=== PATIENT | male | born 1965 | race Caucasian/White ===

== ENCOUNTER 2019-08-04 08:54 | Emergency (ER) | payer MEDICAID, OTHER ==
[~2019-08-04] VITALS: Ht 182.9 cm; Wt 70.6 kg
[2019-08-04 10:24] LABS: BASO % 0.3 % (0.0-1.0); EOS % 0.6 % (0.0-3.0); HEMATOCRIT 49.9 % (42.0-52.0); HEMOGLOBIN 16.8 g/dl (13.5-17.5); LYMPH # 1.7 10^3/uL (1.5-5.0); LYMPH % 24.2 % (24.0-44.0); MEAN CORPUSCULAR HEMOGLOBIN 31.3 pg (27.0-33.0); MEAN CORPUSCULAR HGB CONC 33.7 g/dl (32.0-36.5); MEAN CORPUSCULAR VOLUME 93.1 fl (80.0-96.0); MONO # 0.6 10^3/uL (0.0-0.8); MONO % 8.9 % (0.0-5.0); NEUTROPHILS # 4.5 10^3/uL (1.5-8.5); NEUTROPHILS % 65.7 % (36.0-66.0); PLATELET COUNT, AUTOMATED 206 10^3/uL (150-450); RED BLOOD COUNT 5.36 10^6/uL (4.30-6.10); WHITE BLOOD COUNT 6.9 10^3/uL (4.0-10.0)
[2019-08-04 10:49] LABS: BLOOD UREA NITROGEN 19 MG/DL (7-18); CALCIUM LEVEL 9.5 MG/DL (8.5-10.1); CARBON DIOXIDE LEVEL 30 MEQ/L (21-32); CHLORIDE LEVEL 103 MEQ/L (98-107); CK-MB VALUE MASS 1.2 NG/ML (<3.6); CPK CREATINE PHOSPHOKINASE 107 U/L (39-308); CREATININE FOR GFR 1.01 MG/DL (0.70-1.30); GLOMERULAR FILTRATION RATE > 60.0 (>56); GLUCOSE, FASTING 80 MG/DL (70-100); MB/CK RELATIVE INDEX 1.12 (< OR =4); POTASSIUM SERUM 4.8 MEQ/L (3.5-5.1); SODIUM LEVEL 139 MEQ/L (136-145); TROPONIN I < 0.02 NG/ML (< 0.10)
--- NOTE | 2019-08-04 11:19 | REP ---
CHEST, TWO VIEWS: There is no evidence of acute infiltrate. No pleural effusion is seen. The heart is normal in size. The mediastinal silhouette is unremarkable. The visualized osseous structures are intact. IMPRESSION: No acute pulmonary disease. Recommend chest CT to rule out occult neoplasm. Electronically Signed by Angel Kramer MD 08/05/2019 08:59 A
[2019-08-04] MEDS ORDERED: GUAI100L6 PO (11:37)
[2019-08-04 11:50] VITALS: BP 116/78
--- NOTE | 2019-08-04 20:43 | ECGEPIP ---
[facility] - ED Test Date: 2019-08-04 Pat Name: JOSSE VAZ Department: Room: - Gender: Male [employer]st: frantz : 1965 Requested By: Jayda Garcia Order Number: [id number] Reading MD: Jayda Garcia Measurements Intervals [place] Rate: 74 P: 70 MT: 159 QRS: 86 QRSD: 88 T: 79 QT: 350 QTc: 391 Interpretive Statements SINUS RHYTHM NSTTW abnormalities INFERIOR - CLINICAL CORRELATIONS Electronically Signed on 08-04-2019 20:42:50 EDT by Jayda Garcia
== END 2019-08-04 11:51 | disposition home or self-care (01) ==
LOC: M ED 08:54
DX: J06.9 Acute upper respiratory infection, unspecified (principal); R04.2 Hemoptysis; F17.210 Nicotine dependence, cigarettes, uncomplicated

== ENCOUNTER 2023-05-15 11:28 | Emergency (ER) | payer OTHER ==
[~2023-05-15] VITALS: Ht 182.9 cm; Wt 70.1 kg
[~2023-05-15 11:28] MED LIST: GUAI100L6 PO
[2023-05-15] MEDS ORDERED: AMPICILLIN SOD/SULBACTAM SOD 3 GM in D5W MINI-BAG PLUS 100 ML IV ONE (12:55)
[2023-05-15] MEDS ORDERED: KETOROLAC 30 MG/ML 1ML VIAL IV ONE (12:55)
[2023-05-15] MEDS ORDERED: dexAMETHasone 20MG/5ML VIAL IV ONE (12:55)
[2023-05-15] MEDS ORDERED: NS 1,000 ML IV ONE (12:55)
[2023-05-15] MEDS ORDERED: ISOVUE-370 76% 100ML VIAL As Ordered ONE (13:32)
[2023-05-15 13:49] LABS: BASO % 0.4 % (0.0-1.0); EOS % 0.5 % (0.0-3.0); LYMPH % 26.7 % (24.0-44.0); MEAN CORPUSCULAR HEMOGLOBIN 31.3 pg (27.0-33.0); MEAN CORPUSCULAR HGB CONC 33.5 g/dl (32.0-36.5); MEAN CORPUSCULAR VOLUME 93.5 fl (80.0-96.0); MONO # 0.6 10^3/uL (0.0-0.8); MONO % 7.8 % (2.0-8.0); NEUTROPHILS # 4.8 10^3/uL (1.5-8.5); NEUTROPHILS % 64.3 % (36.0-66.0); PLATELET COUNT, AUTOMATED 230 10^3/uL (150-450); WHITE BLOOD COUNT 7.5 10^3/uL (4.0-10.0)
[2023-05-15 14:03] LABS: ERYTHROCYTE SEDIMENTATION RATE 23 mm/hr (0-20)
[2023-05-15 14:07] LABS: C REACTIVE PROTEIN QUANTITATIV < 0.40 MG/DL (<1.0)
[2023-05-15 14:09] LABS: ALBUMIN 4.6 G/DL (3.2-5.2); ALKALINE PHOSPHATASE 70 U/L (46-116); ALT/SGPT 17 U/L (7.0-40); AST/SGOT 17 U/L (<34); BILIRUBIN,DIRECT 0.2 MG/DL (<0.4); BILIRUBIN,TOTAL 0.5 MG/DL (0.3-1.2); TOTAL PROTEIN 7.9 G/DL (5.7-8.2)
[2023-05-15] MEDS ORDERED: AMOX875T2 PO (14:46)
[2023-05-15 15:04] LABS: HEMOGLOBIN 17.4 g/dl (13.5-17.5)
[2023-05-15 15:05] LABS: RED BLOOD COUNT 5.56 10^6/uL (4.30-6.10)
[2023-05-15 15:08] VITALS: BP 153/81; TEMP 98.1; O2SAT 96
== END 2023-05-15 15:11 | disposition home or self-care (01) ==
LOC: M ED 11:28
DX: K04.7 Periapical abscess without sinus (principal); K08.89 Other specified disorders of teeth and supporting structures; K02.9 Dental caries, unspecified; F17.200 Nicotine dependence, unspecified, uncomplicated
CPT/HCPCS: 70491; 80047; 80076; 83605; 85025; 85652; 86140; 87040; 96365; 96375; 99283; J0295; J1100; J1885; Q9967

== ENCOUNTER 2024-12-03 13:00 | Emergency (ER) | payer OTHER ==
[~2024-12-03] VITALS: Ht 182.9 cm; Wt 74.6 kg
[~2024-12-03 13:00] MED LIST changes: +AMOX875T2 PO
[2024-12-03] MEDS: BOOSTRIX VACCINE (TETANUS/DIPHTH/ACEL. PERTUSSIS) 0.5ML SYR IM ONE (13:43)
[2024-12-03] MEDS ORDERED: CEPH500C PO (14:58)
[2024-12-03] MEDS: ceFAZolin SOD 2 GM in IV 1 EA IV ONE (15:03)
[2024-12-03 15:10] VITALS: BP 150/82; TEMP 97.9; O2SAT 100
== END 2024-12-03 16:01 | disposition home or self-care (01) ==
LOC: M ED 13:00
DX: S62.633B Displaced fracture of distal phalanx of left middle finger, initial encounter for open fracture (principal); Y92.9 Unspecified place or not applicable; Y93.9 Activity, unspecified; Y99.0 Civilian activity done for income or pay; F17.210 Nicotine dependence, cigarettes, uncomplicated; Z23 Encounter for immunization; Z79.2 Long term (current) use of antibiotics
CPT/HCPCS: 73140; 90471; 90715; 96374; 99284; J0690